=== PATIENT | male | born 1980 | race Caucasian/White ===

== ENCOUNTER 2019-11-08 14:59 | Emergency (ER) | payer BC, OTHER ==
[2019-11-08 15:06] VITALS: BP 133/88; RESP 18; TEMP 98.4
--- NOTE | 2019-11-08 15:20 | ED ---
General Adult HPI - General Chief complaint: Extremity Injury, Upper Stated complaint: lt thumb pain Time Seen by Provider: 11/08/19 15:08 Source: patient, RN notes reviewed, old records reviewed Mode of arrival: ambulatory Limitations: no limitations - History of Present Illness Initial comments: 39-year-old male patient presents to ED for chief complaint of one month of left thumb pain. Patient reports that his left thumb has been getting progressively more painful at the interphalangeal joint. He reports that is painful to bend. He denies any trauma. Denies any puncture injuries. Denies any other complaints. Patient denies any IV drug use. Systemic: Pt denies fatigue, fever/chills, rash. Pt denies weakness, night sweats, weight loss. Neuro: Pt denies headache, visual disturbances, syncope or pre-syncope. HEENT: Pt denies ocular discharge or irritation, otalgia, rhinorrhea, pharyngitis or notable lymphadenopathy. Cardiopulmonary: Pt denies chest pain, SOB, heart palpitations, dyspnea on exertion. Abdominal/GI: Pt denies abdominal pain, n/v/d. : Pt denies dysuria, burning w/ urination, frequency/urgency. Denies new onset urinary or bowel incontinence. Neuro: Pt denies new onset weakness, paresthesias. - Related Data Allergies Allergy/AdvReac Type Severity Reaction Status Date / Time No Known Allergies Allergy Verified 11/08/19 15:03 Review of Systems ROS Statement: Those systems with pertinent positive or pertinent negative responses have been documented in the HPI. ROS Other: All systems not noted in ROS Statement are negative. Past Medical History Past Medical History: No Reported History History of Any Multi-Drug Resistant Organisms: None Reported Past Surgical History: No Surgical Hx Reported Past Psychological History: No Psychological Hx Reported Smoking Status: Current every day smoker Past Alcohol Use History: Occasional Past Drug Use History: Marijuana General Exam - General Exam Comments Initial Comments: Constitutional: NAD, AOX3, Pt has pleasant affect. HEENT: NC/AT, trachea midline, neck supple, no lymphadenopathy. Posterior pharynx non erythematous, without exudates. External ears appear normal, without discharge. Mucous membranes moist. Eyes PERRLA, EOM intact. There is no scleral icterus. No pallor noted. Cardiopulmonary: RRR, no murmurs, rubs or gallops, no JVD noted. Lungs CTAB in anterior and posterior us. No peripheral edema. Abdominal exam: Abdomen soft and non-distended. Abdomen non-tender to palpation in all 4 quadrants. Bowel sounds active in LLQ. No hepatosplenomegaly. No ecchymosis Neuro: CN II-XII intact. No nuchal rigidity. No raccon eyes, no conway sign, no hemotympanum. No cervical spinal tenderness. MSK: Left thumb is tender to palpation at the interphalangeal joint and palmar aspect of the digit. Neurovascularly intact. Flexion-extension at ITP joint is limited. Thumb is at extension. Otherwise the range of motion at the MCP joint is intact. There is no external skin changes. There is no other tenderness in the hand or the wrist. Radial pulses +2. Capillary refill <2 seconds. Limitations: no limitations Course Vital Signs 11/08/19 15:03 Temperature 98.4 F Pulse Rate 115 H Respiratory 18 Rate Blood Pressure 133/88 O2 Sat by Pulse 97 Oximetry Procedures - Orthopedic Splinting/Casting Injury #1 Side: left Upper Extremity Injury Location: finger (thumb) Upper Extremity Immobilizer: aluminum form splint Medical Decision Making - Medical Decision Making 39-year-old male patient presents to ED for chief complaint of one month of left thumb pain. Patient reports that his left thumb has been getting progressively more painful at the interphalangeal joint. He reports that is painful to bend. He denies any trauma. Denies any puncture injuries. Denies any other complaints. Patient denies any IV drug use. Physical exam displayed: Left thumb is tender to palpation at the interphalangeal joint and palmar aspect of the digit. Neurovascularly intact. Flexion-extension at ITP joint is limited. Thumb is at extension. Otherwise the range of motion at the MCP joint is intact. There is no external skin changes. There is no other tenderness in the hand or the wrist. Radial pulses +2. Capillary refill <2 seconds. Plain film of left hand displayed minimal narrowing of the distal interphalangeal joints and first metacarpal joints nicking minimal arthropathy. Patient placed and straight finger splint. We'll discharge the patient primary care and orthopedic follow- up. Case discussed with Dr. Moncada. Disposition Clinical Impression: Thumb pain Disposition: HOME SELF-CARE Condition: Stable Instructions (If sedation given, give patient instructions): Arthralgia (ED) Additional Instructions: Continue to wear straight finger splint. May use Tylenol and Motrin for pain. Follow-up with primary care provider and orthopedic consult after discharge. Return to ER if condition worsens. Is patient prescribed a controlled substance at d/c from ED?: No Referrals: None,Stated [Primary Care Provider] - 1-2 days Justin Huitron MD [STAFF PHYSICIAN] - 1-2 days
--- NOTE | 2019-11-08 15:49 | XR ---
EXAMINATION TYPE: XR hand complete LT DATE OF EXAM: 11/08/2019 CLINICAL HISTORY: Left thumb and hand pain after injury TECHNIQUE: Frontal, lateral and oblique images of the left hand are obtained. COMPARISON: None. FINDINGS: There is no acute fracture/dislocation evident in the left hand. The joint spaces in the l eft hand appear aligned with very minimal narrowing of the distal interphalangeal joints and first ca rpal metacarpal joint indicating minimal arthropathy. The overlying soft tissue appears unremarkable . IMPRESSION: There is no acute fracture or dislocation in the left hand.
[2019-11-08 17:23] VITALS: PULSE 78
== END 2019-11-08 17:00 | disposition home or self-care (01) ==
LOC: EC 14:59
DX: M79.645 Pain in left finger(s) (principal); M12.842 Other specific arthropathies, not elsewhere classified, left hand; F17.200 Nicotine dependence, unspecified, uncomplicated
CPT/HCPCS: 99283

== ENCOUNTER 2020-01-21 22:37 | Emergency (ER) | payer OTHER ==
[2020-01-21 22:43] VITALS: BP 164/108; PULSE 98; RESP 22; TEMP 97.9
[2020-01-21] MEDS ORDERED: BACITRACIN OINT 1 EACH PACKET TOPICAL ONE (23:11)
--- NOTE | 2020-01-21 23:21 | ED ---
Male Urogenital HPI - General Chief complaint: Urogenital Stated complaint: ABD pain Time Seen by Provider: 01/21/20 22:57 Source: patient Mode of arrival: ambulatory Limitations: no limitations - History of Present Illness Initial comments: Patient is a 39-year-old male presenting to emergency Department with chief complaint of unable to retract his foreskin. Patient states he is not circumcised and has difficulty retracting his foreskin. He states today he was cleaning the glans penis and then the foreskin retracted far enough and he was not able to retracted back. Patient reports now it is quite painful and the glans penis is swollen and red. Patient states he attempted manual reduction with minimal success. - Related Data Home Medications Medication Instructions Recorded Confirmed No Known Home Medications 01/21/20 01/21/20 Allergies Allergy/AdvReac Type Severity Reaction Status Date / Time No Known Allergies Allergy Verified 01/21/20 22:43 Review of Systems ROS Statement: Those systems with pertinent positive or pertinent negative responses have been documented in the HPI. ROS Other: All systems not noted in ROS Statement are negative. Past Medical History Past Medical History: No Reported History History of Any Multi-Drug Resistant Organisms: None Reported Past Surgical History: No Surgical Hx Reported Past Psychological History: No Psychological Hx Reported Smoking Status: Current every day smoker Past Alcohol Use History: Occasional Past Drug Use History: Marijuana General Exam Limitations: no limitations General appearance: alert, in no apparent distress Head exam: Present: atraumatic, normocephalic, normal inspection Eye exam: Present: normal appearance, PERRL, EOMI Pupils: Present: normal accommodation ENT exam: Present: normal exam, normal oropharynx, mucous membranes moist Neck exam: Present: normal inspection, full ROM. Absent: tenderness Respiratory exam: Present: normal lung sounds bilaterally. Absent: respiratory distress, wheezes, rales Cardiovascular Exam: Present: regular rate, normal rhythm, normal heart sounds GI/Abdominal exam: Present: soft. Absent: tenderness exam: Absent: normal inspection (Paraphimosis. Swollen glands penis.) Course Vital Signs 01/21/20 22:40 Temperature 97.9 F Pulse Rate 98 Respiratory 22 Rate Blood Pressure 164/108 O2 Sat by Pulse 99 Oximetry Medical Decision Making - Medical Decision Making Patient is a 39-year-old male presenting to emergency Department with a chief complaint of unable to retract his foreskin. Exam patient has paraphimosis. Loop was applied and manual reduction was attempted. Minimal success. On reevaluation patient did go to bedtime was able to retract the foreskin by himself. Patient was advised to follow-up with a urologist for possible circumcision. Strict return parameters were thoroughly discussed the patient was understanding and agreeable. Case discussed with physician. Disposition Clinical Impression: Paraphimosis, Penile pain Disposition: HOME SELF-CARE Condition: Stable Instructions (If sedation given, give patient instructions): Acute Paraphimosis (ED) Additional Instructions: Follow-up with urologist. Did not fully retract the foreskin. Return to emergency department if symptoms worsen. Is patient prescribed a controlled substance at d/c from ED?: No Referrals: None,Stated [Primary Care Provider] - 1-2 days Martinez Roberts MD [STAFF PHYSICIAN] - 1-2 days Time of Disposition: 23:27
== END 2020-01-21 23:40 | disposition home or self-care (01) ==
LOC: EC 22:37
DX: N47.2 Paraphimosis (principal); F17.200 Nicotine dependence, unspecified, uncomplicated
CPT/HCPCS: 99283